=== PATIENT | female | born 1940 | race Caucasian/White ===

== ENCOUNTER 2024-02-06 11:01 | Day surgery (SDC) | payer MEDICARE, OTHER ==
[2024-02-03 15:18] LABS: BASOPHILS # (AUTO) 0.1 X10'3 (0-0.2); BASOPHILS % (AUTO) 0.9 % (0-1); EOSINOPHILS # (AUTO) 0.3 X10'3 (0-0.9); EOSINOPHILS % (AUTO) 3.8 % (0-6); LYMPHOCYTES # (AUTO) 1.6 X10'3 (1.1-4.8); LYMPHOCYTES % (AUTO) 22.5 % (21-51); MEAN CORPUSCULAR HEMOGLOBIN 29.6 PG (27.0-31.0); MEAN CORPUSCULAR HGB CONC 33.5 g/dL (33.0-36.5); MEAN CORPUSCULAR VOLUME 88.4 FL (78-98); MEAN PLATELET VOLUME 8.6 FL (7.4-10.4); MONOCYTES # (AUTO) 0.7 X10'3 (0-0.9); MONOCYTES % (AUTO) 9.2 % (2-12); NEUTROPHILS # (AUTO) 4.5 X10'3 (1.8-7.7); NEUTROPHILS % (AUTO) 63.6 % (42-75); PRE OP HEMATOCRIT 40.2 % (35.0-45.0); PRE OP HEMOGLOBIN 13.4 g/dL (12.0-16.0); PRE OP PLATELET COUNT 201 X10'3 (140-440); PRE OP WHITE BLOOD COUNT 7.1 10'3 (4.8-10.8); RED BLOOD COUNT 4.54 X10'6 (4.20-5.60); RED CELL DISTRIBUTION WIDTH 13.3 % (11.5-14.5)
[2024-02-03 15:43] LABS: ALBUMIN 3.7 G/DL (3.4-5.0); ALBUMIN/GLOBULIN RATIO 1.1 (1.1-1.5); ALKALINE PHOSPHATASE 95 IU/L (46-116); BLOOD UREA NITROGEN 12 MG/DL (7-18); BUN/CREATININE RATIO 11.7 (10.0-20.0); CALCIUM 8.6 MG/DL (8.5-10.1); CHLORIDE 105 MMOL/L (99-107); CREATININE 1.03 MG/DL (0.40-0.90); PRE OP ALT 29 U/L (30-65); PRE OP ANION GAP 6 (8-16); PRE OP AST 24 U/L (10-37); PRE OP BILIRUB, TOTAL 0.7 MG/DL (0.0-1.0); PRE OP GLUCOSE 97 MG/DL (70-104); PRE OP SODIUM 140 MMOL/L (135-145); TOTAL CARBON DIOXIDE 29.2 MMOL/L (24-32); eGFR 51 ML/MIN
[~2024-02-06] VITALS: Ht 162.6 cm; Wt 85.0 kg
[2024-02-06] VITALS (10 sets, daily range): BP systolic 142–157; BP diastolic 68–77; PULSE 56–78; RESP 10–19; TEMP 97.8; O2SAT 94–100
[~2024-02-06 11:01] MED LIST: ASPI-1265 PO; ATOR-2 PO; CARV6.253 PO; CITA20TA28 PO; CLOP75TA34 PO; LEVO100T9 PO; LOSA25TA41 PO
[2024-02-06] MEDS: clindamycin-Cleocin 900mg/D5W 50 ML IV ONE (12:11)
[2024-02-06] MEDS: famotidine 20mg tablet PO ONE (12:12)
[2024-02-06] MEDS: NORMAL SALINE IV ONE (12:12)
[2024-02-06] MEDS: GENTAMICIN IV ONE (12:12)
[2024-02-06] MEDS: ringers solution, lacted 1,000 ML IV SCH (12:12)
[2024-02-06] MEDS ORDERED: methylene blue (5mg/ml) 50mg/10ml ampul IV ONE (12:13)
[2024-02-06] MEDS ORDERED: LIDOcaine 1% (10mg/ml)w/preservative inj. 20ml MDV ONE (12:13)
[2024-02-06] MEDS: DOCUMENT DATE & TIME OF BETA-BLOCKER PO ONE (12:13)
[2024-02-06] MEDS ORDERED: BUPIVAcaine 2.5mg/ml inj 50ml vial (contains preservative) ONE (12:14)
[2024-02-06] MEDS ORDERED: fentaNYL/PF 50MCG/1 ML 2ML syringe ONE (13:19)
[2024-02-06] MEDS ORDERED: propofol inj 20 ML IV ONE (13:20)
[2024-02-06] MEDS ORDERED: LIDOcaine 2% (20mg/ml) 5ml vial ONE (13:21)
[2024-02-06] MEDS ORDERED: dexamethasone sod phosphate 4mg/ml inj. ONE (13:21)
[2024-02-06] MEDS ORDERED: ondansetron/PF 4mg/2ml inj ONE (13:21)
[2024-02-06] MEDS ORDERED: sevoflurane 250ml liquid IH ONE (13:30)
[2024-02-06] MEDS: LIDOcaine 1% 30ml preserv. free vial SQ ONE (14:01)
[2024-02-06] MEDS: BUPIVAcaine 2.5mg/ml inj 50ml vial (contains preservative) SQ ONE (14:41)
[2024-02-06] MEDS ORDERED: morphine 2 MG/ML inj. syringe IV PRN (14:50)
[2024-02-06] MEDS ORDERED: morphine 4 MG/ML inj SYRINge IV PRN (14:50)
[2024-02-06] MEDS ORDERED: proCHLORperazine 10 MG/2 ml inj IV PRN (14:50)
[2024-02-06] MEDS ORDERED: ondansetron/PF 4mg/2ml inj IV PRN (14:50)
[2024-02-06] MEDS ORDERED: meperidine/PF 25mg/ml syringe IV PRN ×2 (14:50)
[2024-02-06] MEDS ORDERED: hydrALAZINE 20mg/ml inj. IV PRN (14:50)
== END 2024-02-06 15:33 | disposition home or self-care (01) ==
LOC: PAS 11:01
PROVIDERS: ATTEND Surgery
DX: D05.11 Intraductal carcinoma in situ of right breast (principal); I10 Essential (primary) hypertension; E03.9 Hypothyroidism, unspecified; E78.5 Hyperlipidemia, unspecified; E66.9 Obesity, unspecified; F41.9 Anxiety disorder, unspecified; F32.A Depression, unspecified; I25.2 Old myocardial infarction; Z87.891 Personal history of nicotine dependence; Z79.02 Long term (current) use of antithrombotics/antiplatelets; Z79.890 Hormone replacement therapy; Z79.899 Other long term (current) drug therapy; Z98.41 Cataract extraction status, right eye; Z98.42 Cataract extraction status, left eye; Z68.32 Body mass index [BMI] 32.0-32.9, adult; Z88.0 Allergy status to penicillin; Z88.1 Allergy status to other antibiotic agents
CPT/HCPCS: 19301; 36415; 76098; 80053; 82948; 85025; A4215; A4618; A6258; A6446; A7000; J1100; J1580; J2003; J2405; J2704; J3010; J3490; J7030; J7120; Z7506; Z7508; Z7512; Z7610; Q9968